=== PATIENT | female | born 1955 | race Caucasian/White ===

== ENCOUNTER 2024-11-22 15:26 | Emergency (ER) | payer MEDICAID ==
[~2024-11-22] VITALS: Ht 160 cm; Wt 78.0 kg
[2024-11-22 15:29] VITALS: BP 183/78; PULSE 89; RESP 18; TEMP 37.1; O2SAT 99
== END 2024-11-22 19:57 | disposition left against medical advice (07) ==
LOC: ER 15:26
DX: M25.531 Pain in right wrist (principal); R51.9 Headache, unspecified; Z53.21 Procedure and treatment not carried out due to patient leaving prior to being seen by health care provider